=== PATIENT | female | born 1995 | race African-American/Black ===

== ENCOUNTER 2017-03-19 22:46 | Emergency (ER) | payer OTHER ==
[2017-03-19 23:03] VITALS: BP 130/69; PULSE 57; TEMP 97.9; BMI 32.4
== END 2017-03-20 02:21 | disposition left against medical advice (07) ==
LOC: JER 22:46
DX: Z53.21 Procedure and treatment not carried out due to patient leaving prior to being seen by health care provider (principal)
CPT/HCPCS: 99281-25

== ENCOUNTER 2017-07-07 18:21 | Emergency (ER) | payer OTHER ==
[2017-07-07 18:31] VITALS: BP 132/85; PULSE 77; TEMP 98; BMI 26.6
--- NOTE | 2017-07-07 18:32 | PDOC ---
Rapid Medical Evaluation Time Seen by Provider: 07/07/17 18:27 Medical Evaluation: Allergies Allergy/AdvReac Type Severity Reaction Status Date / Time No Known Allergies Allergy Verified 03/19/17 23:01 07/07/17 18:27 Pt presents with complaint of : boil to left under arm x 2 days and sore throat x 1 day. sister with MRSA On brief exam: non fluctulant, tender, semi firm 2cm mass to left lateral breast /lower axilla, no erythema to soft palte I have ordered the following: none Pt will go to the Emergency Dept for further workup: Discharge Disposition - Diagnosis Sore throat, Mass of left axilla - Referrals - Patient Instructions - Post Discharge Activity
--- NOTE | 2017-07-07 19:37 | PDOC ---
History of Present Illness - General Chief Complaint: Abscess Boil Stated Complaint: SORE THROAT/ABSCESS BOIL Time Seen by Provider: 07/07/17 18:27 History Source: Patient Exam Limitations: No Limitations - History of Present Illness Initial Comments: 07/07/17 19:34 Patient is a [22-year-old female, no significant medical history currently on no medication presents with sore throat since this a.m. and erythematous painful area to left lateral breast. History of abscess in the past from staph. Patient denies any fever, no dysphasia, no nausea vomiting or diarrhea.] Past Medical History: [Denies]. Allergies: No known allergies Medications: [None] Family History: Non-contributory Social History: Denies smoking, alcohol use, or IVDU Review of Systems GENERAL/CONSTITUTIONAL: [No fever or chills. No weakness. No weight change.] HEAD, EYES, EARS, NOSE AND THROAT: [No change in vision. No ear pain or discharge. Sore throat without dysphagia] CARDIOVASCULAR: [No chest pain or shortness of breath.] RESPIRATORY: [No cough, wheezing, or hemoptysis.] GASTROINTESTINAL: [No nausea, vomiting, diarrhea or constipation. No rectal bleeding.] GENITOURINARY: [No dysuria, frequency, or change in urination.] MUSCULOSKELETAL: [No joint or muscle swelling or pain. No neck or back pain.] SKIN AND BREASTS: [No rash or easy bruising. Erythematous, painful area to left lateral breast. No nipple discharge, no dimpling.] NEUROLOGIC: [No headache, vertigo, loss of consciousness, or loss of sensation.] PSYCHIATRIC: [No depression or anxiety.] ENDOCRINE: [No increased thirst. No abnormal weight change.] HEMATOLOGIC/LYMPHATIC: [No anemia, easy bleeding, or history of blood clots.] ALLERGIC/IMMUNOLOGIC: [No hives or skin allergy. No latex allergy.] Physical Exam: GENERAL: [The patient is awake, alert, and fully oriented, in no acute distress. ] EYES: [Pupils equal, round and reactive to light, extraocular movements intact, sclera anicteric, conjunctiva clear.] ENT: [Ears normal, nares patent, oropharynx clear without exudates. Moist mucous membranes. No uvula deviation] NECK: [Normal range of motion, supple without lymphadenopathy, JVD, or masses.] LUNGS: [Breath sounds equal, clear to auscultation bilaterally. No wheezes, and no crackles.] HEART: [Regular rate and rhythm, normal S1 and S2 without murmur, rub or gallop. ] ABDOMEN: [Soft, nontender, normoactive bowel sounds. No guarding, no rebound. No masses. No bruising or abrasions] BREAST: There Is no nipple discharge, no dimpling, no palpable lymph nodes, there is a erythematous palpable painful area to left lateral breast with no fluctuance. No evidence of cellulitis. Beginning stages of abscess, no open area. MUSCULOSKELETAL: [Normal range of motion, no edema. No clubbing or cyanosis. No cords, erythema, or tenderness. No CVA Tenderness with fist.] NEUROLOGICAL: [Cranial nerves II through XII grossly intact. Normal speech, normal gait.] SKIN: [Warm, Dry, normal turgor, no rashes or lesions noted. Erythematous painful area to left lateral breast with no defined middle, no fluctuance.] 07/07/17 19:39 Past History - Past Medical History Allergies/Adverse Reactions: Allergies Allergy/AdvReac Type Severity Reaction Status Date / Time No Known Allergies Allergy Verified 07/07/17 18:31 Home Medications: Ambulatory Orders Cephalexin [Keflex] 500 mg PO TID #30 capsule 07/07/17 Sulfamethoxazole/Trimethoprim [Bactrim Ds -] 1 tab PO BID #20 tablet 07/07/17 Asthma: No Cancer: No Cardiac Disorders: No COPD: No Diabetes: No GI Disorders: Yes (Gallstones) Disorders: No HTN: No Seizures: No Thyroid Disease: No - Surgical History Abdominal Surgery: Yes Cholecystectomy: Yes - Family Disease History Family Disease History: Diabetes: Mother - Immunization History Immunization Up to Date: Yes - Suicide/Smoking/Psychosocial Hx Smoking Status: No Smoking History: Never smoked Have you smoked in the past 12 months: No Number of Cigarettes Smoked Daily: 0 Hx Alcohol Use: No Drug/Substance Use Hx: No Substance Use Type: None Hx Substance Use Treatment: No *Physical Exam - Vital Signs Last Vital Signs Temp Pulse Resp BP Pulse Ox 98 F 77 18 132/85 100 07/07/17 18:28 07/07/17 18:28 07/07/17 18:28 07/07/17 18:28 07/07/17 18:28 Medical Decision Making - Medical Decision Making 07/07/17 19:36 A/P: Patient here for evaluation of beginning stages of abscess to left lateral breast with no defined area, no fluctuance, also with sore throat patient reports multiple areas to skin over the last several weeks which have healed on their own after warm compresses. She has history of staph. Multiple lesions recently which healed on their own. I will discharge patient home on Keflex and Bactrim, follow-up with PMD. There are no draining lesions that are able to be cultures at this time. Patient with no clinical signs of strep pharyngitis. No cough, no erythema or edema, no exudates. I discussed the physical exam findings, ancillary test results and final diagnoses with the patient. I answered all of the patient's questions. The patient was satisfied with the care received and felt comfortable with the discharge plan and treatment plan. The patient will call to arrange follow-up and will return to the Emergency Department with any new, persistent or worsening symptoms. 07/07/17 19:41 07/07/17 19:41 *DC/Admit/Observation/Transfer Diagnosis at time of Disposition: Sore throat, Mass of left axilla - Discharge Dispostion Disposition: HOME Condition at time of disposition: Good Admit: No - Prescriptions Prescriptions: Cephalexin [Keflex] 500 mg PO TID #30 capsule Sulfamethoxazole/Trimethoprim [Bactrim Ds -] 1 tab PO BID #20 tablet - Referrals Referrals: Jessie Metcalf [Primary Care Provider] - - Patient Instructions Printed Discharge Instructions: DI for Skin Abscess, Sore Throat Additional Instructions: Warm soaks to the painful area of left breast. 1. Increase fluid. 2. Pedialyte or Gatorade. 3. Please change toothbrush within 3 days after pain resolves 4. Warm saltwater gargles. 5. Please follow up with PMD in 3 days if symptoms not resolving. 6. Please return to the ER unable to drink or eat, increased fever or other concerns - Post Discharge Activity
== END 2017-07-07 19:47 | disposition home or self-care (01) ==
LOC: JERFT 18:21
DX: L02.412 Cutaneous abscess of left axilla (principal); R07.0 Pain in throat; Z87.19 Personal history of other diseases of the digestive system; B95.8 Unspecified staphylococcus as the cause of diseases classified elsewhere
CPT/HCPCS: 99281-25

== ENCOUNTER 2017-11-08 18:17 | Emergency (ER) | payer OTHER ==
[2017-11-08 18:53] VITALS: BP 115/68; PULSE 79; TEMP 98.7; BMI 26.6
--- NOTE | 2017-11-08 19:18 | PDOC ---
History of Present Illness - General Chief Complaint: Rash Stated Complaint: RASH Time Seen by Provider: 11/08/17 19:08 History Source: Patient Exam Limitations: No Limitations - History of Present Illness Initial Comments: 11/08/17 19:13 Mom here with complaints of re-exacerbation of eczema worsening on her right and left elbows. States he uses a Elocon cream which she has run out of and unavailable until next week denies fever, other symptoms. Timing/Duration: reports: just prior to arrival Severity: Yes: mild, moderate Location: reports: extremities (elbow creases) Modifying Factors: improves with: antihistamine, scratching Associated Symptoms: reports: denies symptoms Past History - Travel Traveled outside of the country in the last 30 days: No Close contact w/someone who was outside of country & ill: No - Past Medical History Allergies/Adverse Reactions: Allergies Allergy/AdvReac Type Severity Reaction Status Date / Time No Known Allergies Allergy Verified 11/08/17 18:50 Home Medications: Ambulatory Orders Mometasone Furoate [Elocon] 45 gm TP BID #1 oint...g. 11/08/17 Asthma: No Cancer: No Cardiac Disorders: No COPD: No Diabetes: No GI Disorders: Yes (Gallstones) Disorders: No HTN: No Seizures: No Thyroid Disease: No - Surgical History Abdominal Surgery: Yes Cholecystectomy: Yes - Family Disease History Family Disease History: Diabetes: Mother - Immunization History Immunization Up to Date: Yes - Suicide/Smoking/Psychosocial Hx Smoking Status: No Smoking History: Never smoked Have you smoked in the past 12 months: No Number of Cigarettes Smoked Daily: 0 Information on smoking cessation initiated: No Hx Alcohol Use: No Drug/Substance Use Hx: No Substance Use Type: None Hx Substance Use Treatment: No Review of Systems - Review of Systems Able to Perform ROS?: Yes Is the patient limited Kinyarwanda proficient: Yes Constitutional: Yes: Symptoms Reported, See HPI, Malaise. No: Fever HEENTM: Yes: See HPI. No: Symptoms Reported Integumentary: Yes: Symptoms Reported, See HPI *Physical Exam - Vital Signs Last Vital Signs Temp Pulse Resp BP Pulse Ox 98.7 F 79 20 115/68 99 11/08/17 18:51 11/08/17 18:51 11/08/17 18:51 11/08/17 18:51 11/08/17 18:51 - Physical Exam General Appearance: Yes: Nourished, Appropriately Dressed, Mild Distress. No: Apparent Distress HEENT: positive: JALIL, Normal ENT Inspection, TMs Normal, Pharynx Normal Neck: positive: Supple. negative: Tender, Lymphadenopathy (R), Lymphadenopathy (L) Respiratory/Chest: positive: Lungs Clear, Normal Breath Sounds Progress Note - Progress Note Progress Note: Eczema exacerbation, will treat with Elocon ointment and have patient follow-up with dermatology *DC/Admit/Observation/Transfer Diagnosis at time of Disposition: Eczema Qualifiers: Eczema type: other Qualified Code(s): L30.8 - Other specified dermatitis - Discharge Dispostion Disposition: HOME Condition at time of disposition: Stable Admit: No - Prescriptions Prescriptions: Mometasone Furoate [Elocon] 45 gm TP BID #1 oint...g. - Referrals - Patient Instructions Printed Discharge Instructions: DI for Atopic Dermatitis - Adult Additional Instructions: Rest, keep cool and dry- avoid strenuous activity or hot /humid environments Less hot showers, no abrasive soaps May use heavy creams like Eucerin or Cetaphil to keep skin moist Elocon cream 0.1%, apply twice a day to affected areas as needed May apply Aveeno, calamine lotion, [id number] hydrocortisone creams as needed for symptoms May use Benadryl at night for antihistamine, Zyrtec/ Laura or Claritin for daytime antihistamine use to help with itching May use [id number]-pru-[id number] hydrocortisone cream on all areas except face Try to identify cause for rash and avoid exposures Followup with PMD in one week if no resolution Make appointment with press operator carbon blocks for evaluation when possible - Post Discharge Activity Forms/Work/School Notes: Back to Work
== END 2017-11-08 19:36 | disposition home or self-care (01) ==
LOC: JERFT 18:17
DX: L30.8 Other specified dermatitis (principal)
CPT/HCPCS: 99281-25

== ENCOUNTER 2018-06-09 14:19 | Emergency (ER) | payer OTHER ==
[2018-06-09] MEDS ORDERED: IBUPROFEN 600 MG TABLET (FP) PO ONE ×2 (14:40→15:41)
--- NOTE | 2018-06-09 14:40 | PDOC ---
Rapid Medical Evaluation Time Seen by Provider: 06/09/18 14:36 Medical Evaluation: Allergies Allergy/AdvReac Type Severity Reaction Status Date / Time No Known Allergies Allergy Verified 03/29/18 09:06 06/09/18 14:37 I have performed a brief in-person evaluation of this patient. The patient presents with a chief complaint of: right ankle pain and mid back pain Pertinent physical exam findings: No tenderness to palpation or bones of foot and ankle. Ambulatory. No spinal tenderness palpated. Carrying child without difficulty. I have ordered the following: Osiris The patient will proceed to the ED for further evaluation. Discharge Disposition - Diagnosis Ankle pain, right, Back pain - Referrals - Patient Instructions - Post Discharge Activity
[2018-06-09 14:42] VITALS: BP 124/70; PULSE 77; TEMP 98.7; BMI 31.6
--- NOTE | 2018-06-09 15:44 | PDOC ---
History of Present Illness - General Chief Complaint: Pain, Acute Stated Complaint: RT FOOT PAIN Time Seen by Provider: 06/09/18 14:36 - History of Present Illness Initial Comments: 06/09/18 15:41 23-year-old female without comorbidities presents for evaluation of right foot pain and mid back pain times one day. No precipitating traumatic event. No radicular symptoms. No loss of bowel or bladder function. Past History - Past Medical History Allergies/Adverse Reactions: Allergies Allergy/AdvReac Type Severity Reaction Status Date / Time No Known Allergies Allergy Verified 06/09/18 15:33 Home Medications: Ambulatory Orders Cyclobenzaprine HCl [Flexeril 10 mg] 10 mg PO HS PRN #10 tablet 06/09/18 Ibuprofen [Motrin -] 600 mg PO TID #30 tablet 06/09/18 Asthma: No Cancer: No Cardiac Disorders: No COPD: No Diabetes: No GI Disorders: Yes (Gallstones) Disorders: No HTN: No Seizures: No Thyroid Disease: No - Surgical History Abdominal Surgery: Yes Cholecystectomy: Yes - Family Disease History Family Disease History: Diabetes: Mother - Immunization History Immunization Up to Date: Yes - Suicide/Smoking/Psychosocial Hx Smoking Status: No Smoking History: Never smoked Have you smoked in the past 12 months: No Number of Cigarettes Smoked Daily: 0 Information on smoking cessation initiated: No Hx Alcohol Use: No Drug/Substance Use Hx: No Substance Use Type: None Hx Substance Use Treatment: No Review of Systems - Review of Systems Musculoskeletal: Yes: See HPI, Back Pain, Joint Pain All Other Systems: Reviewed and Negative *Physical Exam - Vital Signs Last Vital Signs Temp Pulse Resp BP Pulse Ox 98.7 F 77 18 124/70 99 06/09/18 14:39 06/09/18 14:39 06/09/18 14:39 06/09/18 14:39 06/09/18 14:39 - Physical Exam Comments: 06/09/18 15:41 Thoracolumbar spine range of motion is full there is mild right-sided thoracolumbar musculature spasm and tenderness. 5 out of 5 strength in bilateral lower extremities without gross sensorimotor deficits in the negative straight leg raise test bilaterally. Right foot and ankle range of motion is full and nonpainful there is mild tenderness about the MTPJ's of the foot without any evidence of instability or gross sensorimotor deficits she's neurovascularly intact Medical Decision Making - Medical Decision Making 06/09/18 15:42 Thoracolumbar muscle spasm and strain and right foot metatarsalgia I will treat her with a course of Motrin and Flexeril and have her follow-up with orthopedics for further evaluation and treatment options *DC/Admit/Observation/Transfer Diagnosis at time of Disposition: Ankle pain, right, Back pain - Discharge Dispostion Disposition: HOME Condition at time of disposition: Stable Decision to Admit order: No - Prescriptions Prescriptions: Cyclobenzaprine HCl [Flexeril 10 mg] 10 mg PO HS PRN #10 tablet PRN Reason: Muscle Spasms Ibuprofen [Motrin -] 600 mg PO TID #30 tablet - Referrals Referrals: Ricardo Lundy MD [Staff Physician] - - Patient Instructions Printed Discharge Instructions: Muscle Strain Additional Instructions: Return to the emergency room if symptoms worsen or go unresolved. The muscle relaxers one tablet before bedtime which will make you sleepy. The anti- inflammatories one tablet 3 times a day. Please take that with food and discontinue the medication of advised stomach. Follow-up with orthopedic surgery in 2-3 days for further evaluation and treatment options. - Post Discharge Activity
== END 2018-06-09 16:27 | disposition home or self-care (01) ==
LOC: JERFT 14:19
DX: M25.571 Pain in right ankle and joints of right foot (principal); M54.6 Pain in thoracic spine
CPT/HCPCS: 99281-25

== ENCOUNTER 2018-06-11 13:07 | Emergency (ER) | payer OTHER ==
[2018-06-11 13:11] VITALS: BMI 30.9
--- NOTE | 2018-06-11 13:58 | PDOC ---
History of Present Illness - General Chief Complaint: Pain Stated Complaint: RT SIDE PAIN Time Seen by Provider: 06/11/18 13:23 History Source: Patient - History of Present Illness Timing/Duration: reports: constant Quality: reports: severe Abdominal Pain Onset Location: reports: RLQ Pain Radiation: reports: no radiation Past History - Past Medical History Allergies/Adverse Reactions: Allergies Allergy/AdvReac Type Severity Reaction Status Date / Time No Known Allergies Allergy Verified 06/11/18 13:10 Home Medications: Ambulatory Orders NK [No Known Home Medication] 06/11/18 Asthma: No Cancer: No Cardiac Disorders: No COPD: No Diabetes: No GI Disorders: Yes (Gallstones) Disorders: No HTN: No Seizures: No Thyroid Disease: No - Surgical History Abdominal Surgery: Yes Cholecystectomy: Yes - Family Disease History Family Disease History: Diabetes: Mother - Immunization History Immunization Up to Date: Yes - Suicide/Smoking/Psychosocial Hx Smoking Status: No Smoking History: Never smoked Have you smoked in the past 12 months: No Number of Cigarettes Smoked Daily: 0 Hx Alcohol Use: No Drug/Substance Use Hx: No Substance Use Type: None Hx Substance Use Treatment: No Abd/GI Specific PMHX - Complaint Specific PMHX Gall Bladder Disease: Yes Review of Systems - Review of Systems Constitutional: No: Chills, Fever ABD/GI: No: Blood Streaked Bowels, Constipated, Diarrhea, Nausea, Rectal Bleeding, Vomiting : No: Burning, Dysuria, Discharge, Flank Pain, Hematuria Musculoskeletal: No: Back Pain *Physical Exam - Vital Signs Last Vital Signs Temp Pulse Resp BP Pulse Ox 98.5 F 66 18 120/75 100 06/11/18 13:09 06/11/18 13:09 06/11/18 13:09 06/11/18 13:09 06/11/18 13:09 - Physical Exam General Appearance: Yes: Appropriately Dressed. No: Apparent Distress HEENT: positive: Normal Voice Neck: positive: Supple Respiratory/Chest: negative: Respiratory Distress Female Pelvic Exam: positive: normal external exam, cervical os closed, normal adnexa. negative: CMT, discharge, lesions, adnexal tenderness, vaginal bleeding Gastrointestinal/Abdominal: positive: Normal Bowel Sounds, Tender (+tto to RLQ and R suprabubic area), Soft. negative: Distended, Guarding, Rebound Musculoskeletal: negative: CVA Tenderness Integumentary: positive: Dry, Warm Neurologic: positive: Fully Oriented, Alert, Normal Mood/Affect ED Treatment Course - LABORATORY CBC & Chemistry Diagram: 06/11/18 14:02 06/11/18 14:02 Medical Decision Making - Medical Decision Making 06/11/18 13:56 23 yo F, s/p alexx remotely, here with severe RLQ pain that started last night, sharp, 7 out of 10 and constant. States she had to leave work today secondary to pain. No dysuria, abnormal discharge, nausea, vomiting, fever, chills or changes to bowel movements. No history of similar episode. No known history of ovarian cysts or fibroids. Not due for menses. See exam R pelvic pain R/o appy vs torsion vs UTI vs renal colic, less likely PID -pain control -labs/ua -CT -?US 06/11/18 14:41 06/11/18 16:53 Mild transaminitis on labs, similar to labs in the past. Patient denies known liver disease and no excessive alcohol intake. CT read as no obvious sign of appy, but there is a 7 x 4 cm right ovarian cyst with possible fallopian tube dilation. Will order US stat r/o torsion *DC/Admit/Observation/Transfer - Referrals Referrals: Jessie Metcalf [Primary Care Provider] - - Patient Instructions - Post Discharge Activity
[2018-06-11 14:19] LABS: BASO % 0.8 % (0-2.0); EOS % 0.6 % (0-4.5); HEMATOCRIT 38.8 % (32.4-45.2); MCH 30.6 pg (25.7-33.7); MCHC 33.5 g/dl (32.0-36.0); MEAN CELL VOLUME 91.3 fl (80-96); MEAN PLT VOLUME 8.3 fl (7.5-11.1); MONO % 6.9 % (3.8-10.2); NEUT % 70.7 % (42.8-82.8); PLATELET COUNT 361 K/MM3 (134-434); RBC 4.24 M/mm3 (3.60-5.2); RDW 13.5 % (11.6-15.6)
[2018-06-11 14:21] LABS: URINE APPEARANCE CLEAR; URINE BILIRUBIN NEGATIVE (<2.0 mg/dL); URINE COLOR YELLOW; URINE GLUCOSE (UA) NEGATIVE (NEGATIVE); URINE KETONE NEGATIVE (NEGATIVE); URINE LEUK ESTERASE TRACE (NEGATIVE); URINE NITRITE NEGATIVE (NEGATIVE); URINE PROTEIN NEGATIVE (NEGATIVE); URINE UROBILINOGEN 4.0 E.U/dl mg/dL (0.2-1.0)
[2018-06-11 14:37] LABS: EPI CELLS RARE /HPF (FEW); URINE MUCUS RARE
[2018-06-11] MEDS ORDERED: KETOROLAC TROMETHAMINE 30 MG/1 ML VIAL IVPUSH ONE (14:41)
[2018-06-11 15:15] LABS: ALBUMIN 4.2 g/dl (3.4-5.0); ALK PHOS 261 U/L (45-117); ANION GAP 5 MMOL/L (8-16); BILIRUBIN,TOTAL 0.4 mg/dL (0.2-1); BLOOD UREA NITROGEN 8 mg/dL (7-18); CALCIUM 9.3 mg/dL (8.5-10.1); CHLORIDE 103 mmol/L (98-107); CO2 28 mmol/L (21-32); CREATININE 0.8 mg/dL (0.55-1.3); GLUCOSE,RANDOM 86 mg/dL (74-106); LIPASE 226 U/L (73-393); POTASSIUM 4.2 mmol/L (3.5-5.1); SGOT/AST 66 U/L (15-37); SGPT/ALT 98 U/L (13-61); SODIUM 136 mmol/L (136-145); TOT PROT 8.2 g/dl (6.4-8.2)
[2018-06-11] MEDS ORDERED: KETOROLAC TROMETHAMINE 30 MG/1 ML VIAL ONE (15:19)
--- NOTE | 2018-06-11 17:44 | PDOC ---
*Physical Exam - Vital Signs Last Vital Signs Temp Pulse Resp BP Pulse Ox 98.5 F 66 18 120/75 100 06/11/18 13:09 06/11/18 13:09 06/11/18 13:09 06/11/18 13:09 06/11/18 13:09 - Physical Exam Comments: 06/11/18 20:22 Gen: aaox3, nad heart: +s1s2 reg lungs: cta b/l abd: soft, nt/nd +bs, no pelvic ttp ext: no c/c/e ED Treatment Course - LABORATORY CBC & Chemistry Diagram: 06/11/18 14:02 06/11/18 14:02 - ADDITIONAL ORDERS Additional order review: Laboratory Results 06/11/18 06/11/18 06/11/18 14:02 14:02 14:02 Sodium 136 Potassium 4.2 Chloride 103 Carbon Dioxide 28 Anion Gap 5 L BUN 8 Creatinine 0.8 Creat Clearance w eGFR > 60 Random Glucose 86 Calcium 9.3 Total Bilirubin 0.4 AST 66 H ALT 98 H Alkaline Phosphatase 261 H Total Protein 8.2 Albumin 4.2 Lipase 226 Serum , Qual Negative Urine Color Yellow Urine Appearance Clear Urine pH 7.0 D Ur Specific [place] 1.021 Urine Protein Negative Urine Glucose (UA) Negative Urine Ketones Negative Urine Blood Negative Urine Nitrite Negative Urine Bilirubin Negative Urine Urobilinogen 4.0 e.u/dl H Ur Leukocyte Esterase Trace Urine WBC (Auto) 3 Urine RBC (Auto) 1 Ur Epithelial Cells Rare Urine Mucus Rare 06/11/18 14:02 RBC 4.24 MCV 91.3 MCHC 33.5 RDW 13.5 MPV 8.3 Neutrophils % 70.7 D Lymphocytes % 21.0 D Monocytes % 6.9 Eosinophils % 0.6 D Basophils % 0.8 D - Medications Given in the ED: ED Medications Discontinued Medications Generic Name Dose Route Start Last Admin Trade Name Freq PRN Reason Stop Dose Admin Ketorolac Tromethamine 30 mg 06/11/18 14:41 06/11/18 15:22 Toradol Injection - IVPUSH 06/11/18 14:42 30 mg ONCE ONE Administration Medical Decision Making - Medical Decision Making 06/11/18 20:15 23yo female signed out pending pelvic ultrasound -pt with RLQ pain today -ct showed large right ovarian cyst pelvic ultrasound shows [id number] R ovarian cyst and fallopian tube dilatation -pt denies pain on re-evla abd: soft, no ttp 06/11/18 20:[address] Washington who recommends follow up Thursday in the office at 9am. Recommends pt is NPO. this was discussed iwth the patient labs and imaging were discussed with the patient pt understand that if she develops any abd pain over the weekend to immediately return to the ED discussed all signs and symptoms of ovarian torsion and her risk of torsion discussed that she need to see REFRACTORY TECHNICIAN on Thursday at 9am discussed that she needs to be NPO after midnight on Thursday abd is soft and nontender pt is stable for d/c to home *DC/Admit/Observation/Transfer Diagnosis at time of Disposition: Right ovarian cyst - Discharge Dispostion Disposition: HOME Condition at time of disposition: Stable Decision to Admit order: No - Referrals Referrals: Jessie Metcalf [Primary Care Provider] - Mary Beth Washington DO [Staff Physician] - - Patient Instructions Printed Discharge Instructions: DI for Ovarian Cyst Additional Instructions: Please do not eat or drink after midnight on thursday. Please go to see Dr. Washington at 9am on Thursday. Please return to the ED immediately if you develop any new or worsening abdominal pain. Please do not lift anything heavy. Please do not have intercourse. No exercise. - Post Discharge Activity - Attestations Physician Attestion: 06/11/18 20:22 I, Dr. Amie Tinsley DO, attest that this document has been prepared under my direction and personally reviewed by me in its entirety. I further attest, that it accurately reflects all work, treatment, procedures and medical decision -making performed by me.
[2018-06-11 19:00] VITALS: PULSE 70; TEMP 98.4
[2018-06-11 19:04] LABS: INR 1.05 (0.83-1.09); PROTHROMBIN TIME (PATIENT) 12.4 SEC (9.7-13.0)
[2018-06-11 22:25] VITALS: BP 126/73
== END 2018-06-11 20:34 | disposition home or self-care (01) ==
LOC: JER 13:07
PROC: 3E0333Z Introduction of Anti-inflammatory into Peripheral Vein, Percutaneous Approach (ICD-10-PCS; principal; 2018-06-11)
DX: N83.201 Unspecified ovarian cyst, right side (principal)
CPT/HCPCS: 36415; 74177-TC; 76830-TC; 80053; 81003; 81015; 83690; 84703; 85025; 85610; 86850; 86900; 86901; 87491; 87591; 96374; 99283-25

== ENCOUNTER 2018-06-29 16:54 | Emergency (ER) | payer OTHER ==
--- NOTE | 2018-06-29 17:15 | PDOC ---
Rapid Medical Evaluation Time Seen by Provider: 06/29/18 17:13 Medical Evaluation: Allergies Allergy/AdvReac Type Severity Reaction Status Date / Time No Known Allergies Allergy Verified 06/11/18 13:10 I have performed a brief in-person evaluation of this patient. The patient presents with a chief complaint of: sinus pressure, abd pain and vomiting Pertinent physical exam findings: none I have ordered the following: UA/hcg, labs The patient will proceed to the ED for further evaluation. Discharge Disposition - Diagnosis Sinus pressure, Nausea and vomiting, Abdominal pain - Referrals Referrals: Jessie Metcalf [Primary Care Provider] - - Patient Instructions - Post Discharge Activity
[2018-06-29 17:16] VITALS: BP 121/78; PULSE 64; TEMP 98.6; BMI 31.4
[2018-06-29 17:31] LABS: BASO % 0.5 % (0-2.0); EOS % 0.2 % (0-4.5); HEMATOCRIT 33.6 % (32.4-45.2); HEMOGLOBIN 11.1 GM/dL (10.7-15.3); MCH 30.2 pg (25.7-33.7); MEAN CELL VOLUME 91.4 fl (80-96); MEAN PLT VOLUME 7.9 fl (7.5-11.1); NEUT % 86.3 % (42.8-82.8); PLATELET COUNT 317 K/MM3 (134-434); RBC 3.67 M/mm3 (3.60-5.2); RDW 13.4 % (11.6-15.6); WHITE BLOOD COUNT 9.1 K/mm3 (4.0-10.0)
[2018-06-29 18:05] LABS: ALBUMIN 3.9 g/dl (3.4-5.0); ALK PHOS 228 U/L (45-117); ANION GAP 6 MMOL/L (8-16); BILIRUBIN,TOTAL 0.3 mg/dL (0.2-1); BLOOD UREA NITROGEN 7 mg/dL (7-18); CALCIUM 8.7 mg/dL (8.5-10.1); CHLORIDE 104 mmol/L (98-107); CO2 27 mmol/L (21-32); CREATININE 0.7 mg/dL (0.55-1.3); GLUCOSE,RANDOM 96 mg/dL (74-106); POTASSIUM 3.6 mmol/L (3.5-5.1); SGOT/AST 33 U/L (15-37); SGPT/ALT 84 U/L (13-61); SODIUM 137 mmol/L (136-145); TOT PROT 7.2 g/dl (6.4-8.2)
[2018-06-29 18:06] LABS: LIPASE 178 U/L (73-393)
--- NOTE | 2018-06-29 18:53 | PDOC ---
History of Present Illness - General History Source: Patient Exam Limitations: No Limitations - History of Present Illness Initial Comments: 06/29/18 19:03 The patient is a 23 year old female, with no significant PMH who presents to the emergency department with a diffuse headache, abdominal pain, nausea and multiple episodes of NBNB vomit earlier today. Patient reports the symptoms have resolved with the exception of still having a mild diffuse headache and some nausea. Patient last took motrin at 11AM today. 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 <Sofya Zuniga - Last Filed: 06/29/18 19:03> <Astrid Dempsey - Last Filed: 06/29/18 20:02> - General Chief Complaint: Nausea/Vomiting Stated Complaint: Nausea/Vomiting Time Seen by Provider: 06/29/18 17:13 Past History <Sofya Zuniga - Last Filed: 06/29/18 19:03> - Past Medical History Asthma: No Cancer: No Cardiac Disorders: No COPD: No Diabetes: No GI Disorders: Yes (Gallstones) Disorders: No HTN: No Seizures: No Thyroid Disease: No - Surgical History Abdominal Surgery: Yes Cholecystectomy: Yes - Family Disease History Family Disease History: Diabetes: Mother - Immunization History Immunization Up to Date: Yes - Suicide/Smoking/Psychosocial Hx Smoking Status: No Smoking History: Never smoked Have you smoked in the past 12 months: No Number of Cigarettes Smoked Daily: 0 Information on smoking cessation initiated: No Hx Alcohol Use: No Drug/Substance Use Hx: No Substance Use Type: None Hx Substance Use Treatment: No <Astrid Dempsey - Last Filed: 06/29/18 20:02> - Past Medical History Allergies/Adverse Reactions: Allergies Allergy/AdvReac Type Severity Reaction Status Date / Time No Known Allergies Allergy Verified 06/29/18 17:13 Home Medications: Ambulatory Orders Ibuprofen 800 mg PO TID #30 tablet 06/29/18 Ondansetron [Zofran Odt -] 4 mg SL TID #10 od.tablet 06/29/18 Review of Systems - Review of Systems Able to Perform ROS?: Yes Comments:: 06/29/18 19:01 ADULT ROS GENERAL/CONSTITUTIONAL: (+) chills. No fever. No weakness. HEAD, EYES, EARS, NOSE AND THROAT: No change in vision. No ear pain or discharge. No sore throat. CARDIOVASCULAR: No chest pain or shortness of breath. RESPIRATORY: No cough, wheezing, or hemoptysis. GASTROINTESTINAL: (+) Abdominal pain. (+) Nausea. (+) Vomiting. No diarrhea or constipation. GENITOURINARY: No dysuria, frequency, or change in urination. MUSCULOSKELETAL: No joint or muscle swelling or pain. No neck or back pain. SKIN: No rash NEUROLOGIC: (+) Headache. No vertigo, loss of consciousness, or change in strength/sensation. ENDOCRINE: No increased thirst. No abnormal weight change. HEMATOLOGIC/LYMPHATIC: No anemia, easy bleeding, or history of blood clots. ALLERGIC/IMMUNOLOGIC: No hives or skin allergy. <Sofya Zuniga - Last Filed: 06/29/18 19:03> *Physical Exam - Vital Signs Last Vital Signs Temp Pulse Resp BP Pulse Ox 98.6 F 64 16 121/78 98 06/29/18 17:14 06/29/18 17:14 06/29/18 17:14 06/29/18 17:14 06/29/18 17:14 - Physical Exam Comments: 06/29/18 19:02 GENERAL: Awake, alert, and fully oriented, in no acute distress HEAD: No signs of trauma EYES: PERRLA, EOMI, sclera anicteric, conjunctiva clear ENT: Auricles normal inspection, hearing grossly normal, nares patent, oropharynx clear without exudates. Moist mucosa NECK: Normal ROM, supple, no lymphadenopathy, JVD, or masses LUNGS: Breath sounds equal, clear to auscultation bilaterally. No wheezes, and no crackles HEART: Regular rate and rhythm, normal S1 and S2, no murmurs, rubs or gallops ABDOMEN: Soft, nontender, normoactive bowel sounds. No guarding, no rebound. No masses EXTREMITIES: Normal range of motion, no edema. No clubbing or cyanosis. No cords, erythema, or tenderness NEUROLOGICAL: Cranial nerves II through XII grossly intact. Normal speech, normal gait SKIN: Warm, Dry, normal turgor, no rashes or lesions noted. <Sofya Zuniga - Last Filed: 06/29/18 19:03> - Vital Signs Last Vital Signs Temp Pulse Resp BP Pulse Ox 98.6 F 64 16 121/78 98 11/13/18 17:14 06/29/18 17:14 06/29/18 17:14 06/29/18 17:14 06/29/18 17:14 <Astrid Dempsey - Last Filed: 06/29/18 20:02> ED Treatment Course - LABORATORY CBC & Chemistry Diagram: 06/29/18 17:23 06/29/18 17:23 - ADDITIONAL ORDERS Additional order review: Laboratory Results 06/29/18 17:23 Sodium 137 Potassium 3.6 Chloride 104 Carbon Dioxide 27 Anion Gap 6 L BUN 7 Creatinine 0.7 Creat Clearance w eGFR > 60 Random Glucose 96 Calcium 8.7 Total Bilirubin 0.3 AST 33 ALT 84 H Alkaline Phosphatase 228 H Total Protein 7.2 Albumin 3.9 Lipase 178 06/29/18 17:23 RBC 3.67 MCV 91.4 MCHC 33.0 RDW 13.4 MPV 7.9 Neutrophils % 86.3 H D Lymphocytes % 10.0 D Monocytes % 3.0 L Eosinophils % 0.2 Basophils % 0.5 <Sofya Zuniga - Last Filed: 06/29/18 19:03> - LABORATORY CBC & Chemistry Diagram: 06/29/18 17:23 06/29/18 17:23 - ADDITIONAL ORDERS Additional order review: Laboratory Results 06/29/18 17:23 Sodium 137 Potassium 3.6 Chloride 104 Carbon Dioxide 27 Anion Gap 6 L BUN 7 Creatinine 0.7 Creat Clearance w eGFR > 60 Random Glucose 96 Calcium 8.7 Total Bilirubin 0.3 AST 33 ALT 84 H Alkaline Phosphatase 228 H Total Protein 7.2 Albumin 3.9 Lipase 178 06/29/18 17:23 RBC 3.67 MCV 91.4 MCHC 33.0 RDW 13.4 MPV 7.9 Neutrophils % 86.3 H D Lymphocytes % 10.0 D Monocytes % 3.0 L Eosinophils % 0.2 Basophils % 0.5 <Astrid Dempsey - Last Filed: 06/29/18 20:02> *DC/Admit/Observation/Transfer - Attestations Scribe Attestion: 06/29/18 19:02 Documentation prepared by Sofya Zuniga, acting as medical service representative for Moo Byers MD. <Sofya Zuniga - Last Filed: 06/29/18 19:03> - Discharge Dispostion Decision to Admit order: No <Astrid Dempsey - Last Filed: 06/29/18 20:02> Diagnosis at time of Disposition: Headache Qualifiers: Headache type: unspecified Headache chronicity pattern: acute headache Intractability: not intractable Qualified Code(s): R51 - Headache - Discharge Dispostion Disposition: HOME Condition at time of disposition: Stable - Referrals Referrals: Jessie Metcalf [Primary Care Provider] - - Patient Instructions Printed Discharge Instructions: DI for Migraine Additional Instructions: Your headache and vomiting or most likely due from a migraine today. Your strep test is negative. Please take the Motrin 800 mg every 8 hours for the next day to help the symptoms from returning. He may take Zofran every 8 hours as needed for nausea. Please drink plenty of fluids and get rest. Follow-up with her primary care doctor this week. Return to the emergency department for worsening headache, visual changes, lightheadedness, vomiting or if you have any changes in your symptoms. - Post Discharge Activity Forms/Work/School Notes: Back to Work
[2018-06-29] MEDS ORDERED: IBUPROFEN 400 MG TABLET (FP) PO ONE (19:01)
[2018-06-29] MEDS ORDERED: ONDANSETRON *ODT* 4 MG TABLET SL ONE (19:01)
[2018-06-29 19:09] LABS: HCG,QUALITATIVE URINE Negative
[2018-06-29 21:41] LABS: URINE APPEARANCE CLEAR; URINE BILIRUBIN NEGATIVE (<2.0 mg/dL); URINE COLOR YELLOW; URINE GLUCOSE (UA) NEGATIVE (NEGATIVE); URINE KETONE 1+ (NEGATIVE); URINE LEUK ESTERASE NEGATIVE (NEGATIVE); URINE NITRITE NEGATIVE (NEGATIVE); URINE PROTEIN 1+ (NEGATIVE)
[2018-06-29 21:49] LABS: EPI CELLS RARE /HPF (FEW); URINE BACTERIA RARE /hpf (NONE SEEN); URINE MUCUS MANY
== END 2018-06-29 20:14 | disposition home or self-care (01) ==
LOC: JERFT 16:54
DX: R51 Headache (principal)
CPT/HCPCS: 36415; 80053; 81003; 81015; 83690; 84703; 85025; 87070; 87430; 99281-25; Q0162

== ENCOUNTER 2018-07-26 05:44 | Day surgery (SDC) | payer OTHER ==
[2018-07-23 16:52] VITALS: BMI 30.7
[2018-07-26] MEDS ORDERED: fentaNYL CITRATE 250 MCG/5 ML VIAL ONE (13:54)
[2018-07-26] MEDS ORDERED: MIDAZOLAM HCL 2 MG/2 ML SINGLE DOSE VIAL ONE (13:55)
[2018-07-26] MEDS ORDERED: ROCURONIUM BROMIDE 50 MG/5 ML VIAL ONE (13:55)
[2018-07-26] MEDS ORDERED: PROPOFOL 20 ML ONE ×2 (13:55→14:19)
[2018-07-26] MEDS ORDERED: DEXAMETHASONE SOD PHOSPHATE 4 MG/1 ML VIAL ONE (13:56)
[2018-07-26] MEDS ORDERED: LIDOCAINE HCL/PF 2% SDV 5ML VIAL ONE (13:56)
[2018-07-26] MEDS ORDERED: ACETAMINOPHEN 325 MG TABLET (FP) PO PRN (14:01)
[2018-07-26] MEDS ORDERED: IBUPROFEN 800 MG/8 ML IJ IVPB PRN (14:01)
--- NOTE | 2018-07-26 14:01 | HP ---
History & Physical Update - History History: No Change - Physical Physical: No Change - Assessment Assessment: No Change - Plan Plan: No Change (Agree with H&P from 07/23/18)
[2018-07-26] MEDS ORDERED: oxyCODONE HCL 5 MG TABLET PO PRN (14:14)
[2018-07-26] MEDS ORDERED: PROMETHAZINE HCL 25 MG/1 ML VIAL IVPUSH PRN (14:14)
[2018-07-26] MEDS ORDERED: ONDANSETRON 4 MG/2 ML VIAL IVPUSH PRN (14:14)
[2018-07-26] MEDS ORDERED: LACTATED RINGERS SOLUTION 1,000 ML IV SCH ×2 (14:15)
[2018-07-26] MEDS ORDERED: BUPIVACAINE HCL/PF (5 MG/ML) 30 ML VIAL IJ ONE (14:45)
[2018-07-26] MEDS ORDERED: BUPIVACAINE HCL/PF 0.5% (5MG/ML) 10 ML VIAL ONE (14:46)
[2018-07-26] MEDS ORDERED: NEOSTIGMINE METHYLSULFATE 0.5 MG/ML - 10 ML MDV ONE (14:50)
[2018-07-26] MEDS ORDERED: GLYCOPYRROLATE 0.2 MG/1 ML VIAL ONE (14:50)
--- NOTE | 2018-07-26 15:20 | OP ---
Operative Note - Note: Operative Date: 07/26/18 Pre-Operative Diagnosis: Right dilated fallopian tube Operation: Laprascopic right salpingectomy Post-Operative Diagnosis: Same as Pre-op Surgeon: Mary Beth Washington Lime Sludge Mixer: Kemal Kirkland Anesthesiologist/DATA REPORTING ANALYST: Reinier Suggs Anesthesia: General Specimens Removed: right fallopian tube Estimated Blood Loss (mls): 2 Fluid Volume Replaced (mls): 200 Operative Report Dictated: Yes
--- NOTE | 2018-07-26 15:21 | SURG ---
Surgery Offset Second Press Operator Note Offset Second Press Operator: Kemal Kirkland PA-C Date of Service: 07/26/18 Diagnosis: Right dilated fallopian tube, pelvic pain Procedure: Laprascopic right salpingectomy I was present for the entirety of the operative procedure. For further detail, please refer to operative report. Visit type - Case Type Case Type: Scheduled - New patient This patient is new to me today: Yes Date on this admission: 07/26/18
[2018-07-26] MEDS ORDERED: IBUPROFEN 800 MG/8 ML IJ IVPB ONE (15:38)
[2018-07-26 17:59] VITALS: BP 102/57; PULSE 66
[2018-07-26 18:07] VITALS: TEMP 97.8
--- NOTE | 2018-07-27 09:22 | OP ---
DATE OF OPERATION: 07/26/2018 PREOPERATIVE DIAGNOSIS: Right adnexal cyst, possible dilated fallopian tube. POSTOPERATIVE DIAGNOSIS: Right hematosalpinx. SURGEON: Radha Washington DO CANVAS GOODS MAKER: MARIAJOSE Dee PROCEDURE: Laparoscopic right salpingectomy. ANESTHESIOLOGIST: SHA Albrecht-PASTORA, applying general anesthesia. COMPLICATIONS: None. ESTIMATED BLOOD LOSS: 5 mL SPECIMEN: Right fallopian tube to permanent evaluation. COUNT: Sponge, needle, and instrument count correct. DISPOSITION: Stable to PACU. BRIEF HISTORY AND PROCEDURE: Patient is a 23-year-old female who had been seen in the emergency department with complaints of pelvic pain, and upon ultrasound examination, was found to have possible dilated fallopian tube versus ovarian torsion. Patient was then seen in the office with followup and scheduled to undergo diagnostic laparoscopy and removal of cystic structure. Patient was admitted to [facility] on July 26, 2018. Consents for the procedure were confirmed which were signed in the office 3 days prior. She was then taken back to the operating room and given general anesthesia by Reinier Suggs CRNA, and placed in dorsal lithotomy position, prepped and draped in the usual sterile fashion. A Jennings catheter was placed under sterile conditions, and a hard timeout was performed. A 5-mm skin incision was created in the umbilicus through which a Veress needle was inserted and the abdomen insufflated with CO2 gas. A 5-mm trocar was placed in the umbilical incision. A camera was inserted into the abdomen. Inspection revealed a dilated right fallopian tube which appeared to be full of blood. Left fallopian tube and bilateral ovaries were noted to be normal. The right fallopian tube was elevated and dissected off the attachment to the ovary and to the uterus along the mesosalpinx using LigaSure device. The tube was then incised and drained of the blood and fluid so it could fit through the 5-mm trocar. It was removed through the left 5-mm trocar site under direct visualization without difficulty. The specimen was sent to Pathology for permanent evaluation. Surgical site was noted to be hemostatic. The remainder of the intraabdominal contents revealed no abnormalities. The trocars were removed under direct visualization. Abdomen was desufflated. The skin was reapproximated using 4-0 Biosyn and skin glue. Marcaine was injected subcutaneously. The Jennings catheter was removed. She was awoken from anesthesia and recovering in stable condition after the procedure. Sponge, needle, and instrument count was reported to be correct. RADHA WASHINGTON DO /[id number]
--- NOTE | 2018-07-28 12:15 | PATH ---
Surgical Pathology Report Patient Name: CARLOS ALBERTO HOLMAN [facility]. Rec. #: [id number] /Age/Gender: 1995 (Age: 23) / F Account: [id number] Location: AMBULATORY SURG Taken: 07/26/2018 Received: 07/27/2018 Reported: 07/28/2018 Physicians: Mary Beth Washington M.D. Specimen(s) Received RIGHT FALLOPIAN TUBE Clinical History Adrenal mass, hydrosalpinx Final Diagnosis FALLOPIAN TUBE, RIGHT, LAPAROSCOPIC SALPINGECTOMY: FALLOPIAN TUBE WITH ENDOMETRIOSIS, ADHESIONS, AND CHRONIC SALPINGITIS. Electronically Signed Jessie Santos M.D. Gross Description Received in formalin labeled "right fallopian tube," is a 7 cm in length fimbriated fallopian tube. The outer surface is ssoa-chau with adhesions. Sectioning reveals a focally cystic appearing lumen. Mobile Paramedical Examiner sections are submitted in 2 cassettes as follows: 1-fimbria; 2-cross sections of fallopian tube. 07/27/2018 [facility]07/27/2018
== END 2018-07-26 18:08 | disposition home or self-care (01) ==
LOC: JASUSAT 05:44
PROVIDERS: ATTEND Obstetrics & Gynecology
PROC: 0UB54ZZ Excision of Right Fallopian Tube, Percutaneous Endoscopic Approach (ICD-10-PCS; principal; 2018-07-26 14:00)
DX: N83.6 Hematosalpinx (principal)
CPT/HCPCS: 88305-TC; 94760

== ENCOUNTER 2018-09-20 16:59 | Emergency (ER) | payer OTHER | END 2018-09-20 19:01 | disposition home or self-care (01) | LOC: JERFT 16:59 ==

== ENCOUNTER 2018-10-09 23:20 | Emergency (ER) | payer OTHER ==
--- NOTE | 2018-10-10 00:27 | PDOC ---
History of Present Illness - History of Present Illness Initial Comments: This patient is a 23 year old female, with no significant PMHx, who presents with lower back pain and epigastric. Her daughter was diagnosed with the flu recently but patient is not currently complaining of any flu-like symptoms. 10/10/18 01:21 <Alyse Ceballos - Last Filed: 10/10/18 01:20> <Angy Sawyer - Last Filed: 10/10/18 02:34> - General Stated Complaint: BACK AND ABD PAIN Time Seen by Provider: 10/10/18 00:27 Past History <Alyse Ceballos - Last Filed: 10/10/18 01:20> - Past Medical History Asthma: No Cancer: No Cardiac Disorders: No COPD: No Diabetes: No GI Disorders: Yes (Gallstones) Disorders: No HTN: Yes (2011- during ) Seizures: No Thyroid Disease: No - Surgical History Abdominal Surgery: Yes Cholecystectomy: Yes - Family Disease History Family Disease History: Diabetes: Mother - Immunization History Immunization Up to Date: Yes - Suicide/Smoking/Psychosocial Hx Smoking Status: No Smoking History: Never smoked Have you smoked in the past 12 months: No Number of Cigarettes Smoked Daily: 0 Hx Alcohol Use: No Drug/Substance Use Hx: No Substance Use Type: None Hx Substance Use Treatment: No <Angy Sawyer - Last Filed: 10/10/18 02:34> - Past Medical History Allergies/Adverse Reactions: Allergies Allergy/AdvReac Type Severity Reaction Status Date / Time No Known Allergies Allergy Verified 09/20/18 17:11 Home Medications: Ambulatory Orders Ibuprofen 400 mg PO Q6H PRN #30 tablet 09/20/18 Oseltamivir Phosphate [Tamiflu -] 75 mg PO BID #10 capsule 09/20/18 Review of Systems - Review of Systems Comments:: GENERAL/CONSTITUTIONAL: No fever or chills. No weakness. HEAD, EYES, EARS, NOSE AND THROAT: No change in vision. No ear pain or discharge. No sore throat. CARDIOVASCULAR: No chest pain or shortness of breath. RESPIRATORY: No cough, wheezing, or hemoptysis. GASTROINTESTINAL: +epigastric pain. No nausea, vomiting, diarrhea or constipation. GENITOURINARY: No dysuria, frequency, or change in urination. MUSCULOSKELETAL: No joint or muscle swelling or pain. No neck pain. +back pain. SKIN: No rash NEUROLOGIC: No headache, vertigo, loss of consciousness, or change in strength/ sensation. ENDOCRINE: No increased thirst. No abnormal weight change. HEMATOLOGIC/LYMPHATIC: No anemia, easy bleeding, or history of blood clots. ALLERGIC/IMMUNOLOGIC: No hives or skin allergy. <Alyse Ceballos - Last Filed: 10/10/18 01:20> *Physical Exam - Vital Signs Last Vital Signs Temp Pulse Resp BP Pulse Ox 98.4 F 79 20 134/81 100 10/10/18 01:02 10/10/18 01:02 10/10/18 01:02 10/10/18 01:02 10/10/18 01:02 - Physical Exam Comments: GENERAL: Awake, alert, and fully oriented, in no acute distress HEAD: No signs of trauma EYES: PERRLA, EOMI, sclera anicteric, conjunctiva clear ENT: Auricles normal inspection, hearing grossly normal, nares patent, oropharynx clear without exudates. Moist mucosa NECK: Normal ROM, supple, no lymphadenopathy, JVD, or masses LUNGS: Breath sounds equal, clear to auscultation bilaterally. No wheezes, and no crackles HEART: Regular rate and rhythm, normal S1 and S2, no murmurs, rubs or gallops ABDOMEN: Soft, nontender, normoactive bowel sounds. No guarding, no rebound. No masses EXTREMITIES: Normal range of motion, no edema. No clubbing or cyanosis. No cords, erythema, or tenderness NEUROLOGICAL: Cranial nerves II through XII grossly intact. Normal speech, normal gait SKIN: Warm, Dry, normal turgor, no rashes or lesions noted. 10/10/18 01:24 <Alyse Ceballos - Last Filed: 10/10/18 01:20> Moderate Sedation - Procedure Monitoring Vital Signs: Procedure Monitoring Vital Signs Temperature 98.4 F 10/10/18 01:02 Pulse Rate 79 10/10/18 01:02 Respiratory Rate 20 10/10/18 01:02 Blood Pressure 134/81 10/10/18 01:02 O2 Sat by Pulse Oximetry (%) 100 10/10/18 01:02 <Alyse Ceballos - Last Filed: 10/10/18 01:20> ED Treatment Course - ADDITIONAL ORDERS Additional order review: Laboratory Results 10/10/18 00:49 Urine HCG, Qual Negative <Alyse Ceballos - Last Filed: 10/10/18 01:20> *DC/Admit/Observation/Transfer - Attestations Scribe Attestion: 10/10/18 01:24 Documentation prepared by Alyse Ceballos, acting as medical officer psychiatry for Angy Sawyer MD. <Alyse Ceballos - Last Filed: 10/10/18 01:20> - Discharge Dispostion Decision to Admit order: No <Angy Sawyer - Last Filed: 10/10/18 02:34> Diagnosis at time of Disposition: Muscle pain - Discharge Dispostion Disposition: HOME Condition at time of disposition: Stable - Referrals Referrals: Maya Ulloa MD [Primary Care Provider] - - Patient Instructions Printed Discharge Instructions: Back Pain (Alternative Therapy), DI for Dyspepsia
[2018-10-10 01:03] VITALS: BP 134/81; PULSE 79; TEMP 98.4; BMI 30.5
[2018-10-10 01:56] LABS: URINE APPEARANCE CLEAR; URINE BILIRUBIN NEGATIVE (<2.0 mg/dL); URINE COLOR LTYELLOW; URINE GLUCOSE (UA) NEGATIVE (NEGATIVE); URINE KETONE NEGATIVE (NEGATIVE); URINE LEUK ESTERASE NEGATIVE (NEGATIVE); URINE NITRITE NEGATIVE (NEGATIVE); URINE PROTEIN NEGATIVE (NEGATIVE); URINE UROBILINOGEN NEGATIVE mg/dL (0.2-1.0)
== END 2018-10-10 02:43 | disposition home or self-care (01) ==
LOC: JER 23:20
DX: M79.18 Myalgia, other site (principal)
CPT/HCPCS: 81003; 84703; 99281-25

== ENCOUNTER 2019-01-03 21:26 | Emergency (ER) | payer OTHER ==
[2019-01-03 21:41] VITALS: BP 137/72; PULSE 85; TEMP 97.9; BMI 29.7
--- NOTE | 2019-01-03 21:44 | PDOC ---
Rapid Medical Evaluation Chief Complaint: Nausea Time Seen by Provider: 01/03/19 21:42 Medical Evaluation: Allergies Allergy/AdvReac Type Severity Reaction Status Date / Time No Known Allergies Allergy Verified 01/03/19 21:39 Vital Signs Temp Pulse Resp BP Pulse Ox 97.9 F 85 18 137/72 99 01/03/19 21:40 01/03/19 21:40 01/03/19 21:40 01/03/19 21:40 01/03/19 21:40 01/03/19 21:43 I have performed a brief in-person evaluation of this patient. The patient presents with a chief complaint of: no PMhx present with complains of morning sickness for 4 days. LMP 12/02 Pertinent physical exam findings: A&O x 3 I have ordered the following: Uhcg The patient will proceed to the ED for further evaluation. Discharge Disposition - Diagnosis Nausea - Discharge Dispostion Condition at time of disposition: Stable - Referrals - Patient Instructions - Post Discharge Activity
--- NOTE | 2019-01-03 23:37 | PDOC ---
History of Present Illness - General Chief Complaint: Nausea Stated Complaint: nausea Time Seen by Provider: 01/03/19 21:42 - History of Present Illness Initial Comments: 01/03/19 23:34 The patient is a 23 year old female with no reported significant PMH who presents to the ED c/o 3 day h/o nausea in the morning. No associated vomiting , abdominal cramping, fevers/chills. LMP was December 02 and states she is regular. Reports to nursing @ triage that she is here for a test. States she is waiting for her insurance card to be mailed to her to establish primary care. NKDA Past History - Past Medical History Allergies/Adverse Reactions: Allergies Allergy/AdvReac Type Severity Reaction Status Date / Time No Known Allergies Allergy Verified 01/03/19 21:39 Home Medications: Ambulatory Orders Ondansetron [Zofran -] 4 mg PO BID PRN 7 Days #14 tablet 01/03/19 Asthma: No Cancer: No Cardiac Disorders: No COPD: No Diabetes: No GI Disorders: Yes (Gallstones) Disorders: No HTN: Yes (2011- during ) Seizures: No Thyroid Disease: No - Surgical History Abdominal Surgery: Yes Cholecystectomy: Yes - Family Disease History Family Disease History: Diabetes: Mother - Immunization History Immunization Up to Date: Yes - Suicide/Smoking/Psychosocial Hx Smoking Status: No Smoking History: Never smoked Have you smoked in the past 12 months: No Number of Cigarettes Smoked Daily: 0 Hx Alcohol Use: No Drug/Substance Use Hx: No Substance Use Type: None Hx Substance Use Treatment: No Review of Systems - Review of Systems Constitutional: No: Chills, Fever HEENTM: No: Recent change in vision Respiratory: No: Cough, Shortness of Breath Cardiac (ROS): No: Chest Pain, Lightheadedness, Palpitations, Syncope ABD/GI: Yes: Nausea. No: Constipated, Diarrhea, Vomiting, Abdominal cramping *Physical Exam - Vital Signs Last Vital Signs Temp Pulse Resp BP Pulse Ox 97.9 F 85 18 137/72 99 01/03/19 21:40 01/03/19 21:40 01/03/19 21:40 01/03/19 21:40 01/03/19 21:40 - Physical Exam General Appearance: Yes: Nourished, Appropriately Dressed HEENT: positive: Normal Voice, Hearing Grossly Normal Neck: positive: Trachea midline, Supple Respiratory/Chest: positive: Lungs Clear, Normal Breath Sounds Cardiovascular: positive: S1, S2. negative: Edema, JVD Gastrointestinal/Abdominal: positive: Normal Bowel Sounds, Soft. negative: Distended, Guarding, Rebound, Tenderness Musculoskeletal: negative: CVA Tenderness (R), CVA Tenderness (L) Extremity: positive: Normal Capillary Refill, Normal Inspection Integumentary: positive: Normal Color, Dry, Warm Neurologic: positive: mold polisher II-XII NML intact, Fully Oriented, Alert ED Treatment Course - ADDITIONAL ORDERS Additional order review: Laboratory Results 01/03/19 21:54 Urine HCG, Qual Negative Medical Decision Making - Medical Decision Making 01/03/19 23:35 23 year old female presents with nausea and stated reason for visit of obtaining a test. VS unremarkable. Abdominal, cardiac and respiratory exam without any concerning clinical findings. 01/03/19 23:47 Urine HCG negative Will give outpatient prescription for Zofran (7 days) and discharge home with instruction to follow-up with primary care once she receives her insurance card. *DC/Admit/Observation/Transfer Diagnosis at time of Disposition: Nausea - Discharge Dispostion Disposition: HOME Condition at time of disposition: Good Decision to Admit order: No - Prescriptions Prescriptions: Ondansetron [Zofran -] 4 mg PO BID PRN 7 Days #14 tablet PRN Reason: Nausea - Referrals - Patient Instructions Printed Discharge Instructions: DI for Nausea -- Adult Additional Instructions: You were evaluated today for your nausea. We have sent a short term prescription of a nausea medication to your pharmacy. Please follow up with your primary care doctor for further refills. Your urine test is negative. Return to the Emergency Department for any new/worsening/concerning symptoms. - Post Discharge Activity
--- NOTE | 2019-01-03 23:59 | PDOC ---
Documentation entered by Sofya Zuniga SCRIBE, acting as scribe for Lavinia Iglesias MD. Lavinia Iglesias MD: This documentation has been prepared by the Efrain zuñiga Daisy, SCRIBE, under my direction and personally reviewed by me in its entirety. I confirm that the documentation accurately reflects all work, treatment, procedures, and medical decision making performed by me. Attending Attestation - Resident Resident Name: Ashley Nguyen - ED Attending Attestation I have performed the following: I have examined & evaluated the patient, The case was reviewed & discussed with the resident, I agree w/resident's findings & plan - HPI HPI: 01/03/19 23:50 This 23 yo female is concerned she maybe and her LMP 12/02/18 - Physicial Exam PE: 01/03/19 23:51 wnwd 23 yo female in no acute distress head ncat neck supple lungs cta b/l cvs [id number] abd no rebound, no guarding extremities normal exam,no tenderness,no rashes,full rage of motion no cva tenderness skin warm and dry neuro axox3,ambulatory - Medical Decision Making 01/03/19 23:59 pt had a negative test and is being discharged
== END 2019-01-04 | disposition home or self-care (01) ==
LOC: JERFT 21:26 → JER 21:26
DX: R11.0 Nausea (principal); Z32.02 Encounter for pregnancy test, result negative
CPT/HCPCS: 84703; 99282-25

== ENCOUNTER 2019-02-23 07:45 | Emergency (ER) | payer OTHER ==
[2019-02-23 07:59] VITALS: BP 93/69; PULSE 78; TEMP 98.5; BMI 27.4
--- NOTE | 2019-02-23 08:38 | PDOC ---
History of Present Illness - General Chief Complaint: Nausea Stated Complaint: NAUSEA Time Seen by Provider: 02/23/19 08:06 History Source: Patient Exam Limitations: No Limitations Past History - Travel Traveled outside of the country in the last 30 days: No Close contact w/someone who was outside of country & ill: No - Past Medical History Allergies/Adverse Reactions: Allergies Allergy/AdvReac Type Severity Reaction Status Date / Time No Known Allergies Allergy Verified 02/23/19 07:54 Home Medications: Ambulatory Orders Loratadine [Claritin -] 10 mg PO DAILY 02/23/19 Ondansetron [Zofran Odt -] 4 mg SL TID #10 od.tablet 02/23/19 Asthma: No Cancer: No Cardiac Disorders: No COPD: No Diabetes: No GI Disorders: Yes (Gallstones) Disorders: No HTN: Yes (2012- during ) Seizures: No Thyroid Disease: No - Surgical History Abdominal Surgery: Yes Cholecystectomy: Yes - Family Disease History Family Disease History: Diabetes: Mother - Reproductive History Is Patient Now?: No - Immunization History Immunization Up to Date: Yes - Suicide/Smoking/Psychosocial Hx Smoking Status: No Smoking History: Unknown if ever smoked Have you smoked in the past 12 months: No Number of Cigarettes Smoked Daily: 0 Hx Alcohol Use: No Drug/Substance Use Hx: No Substance Use Type: None Hx Substance Use Treatment: No Review of Systems - Review of Systems Able to Perform ROS?: Yes Comments:: 02/23/19 10:30 CONSTITUTIONAL: Absent: fever, chills, diaphoresis, generalized weakness, malaise, loss of appetite HEENT: Absent: rhinorrhea, nasal congestion, throat pain, throat swelling, difficulty swallowing, mouth swelling, ear pain, eye pain, visual Changes CARDIOVASCULAR: Absent: chest pain, loss of consciousness, palpitations, irregular heart rate, peripheral edema RESPIRATORY: Absent: cough, shortness of breath, dyspnea with exertion, orthopnea, wheezing, stridor, hemoptysis GASTROINTESTINAL: Present: nausea Absent: abdominal pain, abdominal distension, vomiting, diarrhea , constipation, melena, hematochezia GENITOURINARY: Absent: dysuria, frequency, urgency, hesitancy, hematuria, flank pain, genital pain MUSCULOSKELETAL: Absent: myalgia, arthralgia, joint swelling SKIN: Absent: rash, itching, pallor HEMATOLOGIC/IMMUNOLOGIC: Absent: easy bleeding, easy bruising, lymphadenopathy, frequent infections ENDOCRINE: Absent: unexplained weight gain, unexplained weight loss, heat intolerance, cold intolerance NEUROLOGIC: Absent: headache, focal weakness or paresthesias, dizziness, unsteady gait, seizure, mental status changes, bladder or bowel incontinence PSYCHIATRIC: Absent: anxiety, depression, suicidal or homicidal ideation, hallucinations. Is the patient limited Czech proficient: No *Physical Exam - Vital Signs Last Vital Signs Temp Pulse Resp BP Pulse Ox 98.5 F 78 16 93/69 100 02/23/19 07:57 02/23/19 07:57 02/23/19 07:57 02/23/19 07:57 02/23/19 07:57 - Physical Exam Comments: 02/23/19 10:30 GENERAL: Well developed, well nourished. Awake and alert. No acute distress. HEENT: Normocephalic, atraumatic. PERRLA, EOMI. No conjunctival pallor. Sclera are non- icteric. Moist mucous membranes. Oropharynx is clear. NECK: Supple. Full ROM. No JVD. Carotid pulses 2+ and symmetric, without bruits. No thyromegaly. No lymphadenopathy. ABDOMINAL: Soft. Non-tender. Non-distended. No rebound or guarding. No organomegaly. Normoactive bowel sounds. SKIN: Warm and dry. Normal capillary refill. No rashes. No jaundice. NEUROLOGICAL: Alert, awake, appropriate. Cranial nerves 2-12 intact. No deficits to light touch and temperature in face, upper extremities and lower extremities. No motor deficits in the in face, upper extremities and lower extremities. Normoreflexic in the upper and lower extremities. Normal speech. Toes are down- going bilaterally. Gait is normal without ataxia. PSYCHIATRIC: Cooperative. Good eye contact. Appropriate mood and affect. Medical Decision Making - Medical Decision Making 02/23/19 10:31 the patient is a 23-year-old female no past medical history who presents to the ER today with 1 day of nausea. She states that when she woke up this morning she had a wave of nausea but that feeling soon past. She denies abdominal pain , urinary symptoms at this time. She states that her nausea has gone away as well. A/P: Nausea On exam abdomen soft nontender with no rebound guarding or tennis. Patient is currently symptomatically. Urine obtained as patient is unsure if she is test is negative Discharge home with Zofran as needed for nausea I discussed the physical exam findings, ancillary test results and final diagnoses with the patient. I answered all of the patient's questions. The patient was satisfied with the care received and felt comfortable with the discharge plan and treatment plan. The Patient agrees to follow up with the primary care physician/specialist within 24-72 hours. Return precautions were given. *DC/Admit/Observation/Transfer Diagnosis at time of Disposition: Nausea - Discharge Dispostion Disposition: HOME Condition at time of disposition: Stable Decision to Admit order: No - Prescriptions Prescriptions: Ondansetron [Zofran Odt -] 4 mg SL TID #10 od.tablet - Referrals Referrals: Grant Flores [Primary Care Provider] - - Patient Instructions Printed Discharge Instructions: DI for Nausea -- Adult Additional Instructions: You were evaluated for your nausea today your test was negative you may take the zofran, 1 tab every 8 hours as needed for nausea Eat a bland diet Follow up with your primary care doctor this week Return to the ER for vomiting, fever, abdominal pain, or if you have any changes in your symptoms - Post Discharge Activity Forms/Work/School Notes: Back to Work
== END 2019-02-23 09:37 | disposition home or self-care (01) ==
LOC: JERFT 07:45
DX: R11.0 Nausea (principal); I10 Essential (primary) hypertension
CPT/HCPCS: 84703; 99282-25

== ENCOUNTER 2019-02-24 18:45 | Emergency (ER) | payer OTHER ==
[2019-02-24 18:51] VITALS: BP 147/87; PULSE 84; TEMP 98.5; BMI 30.7
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
== END 2019-02-24 19:27 | disposition home or self-care (01) ==
LOC: JERFT 18:45
DX: S49.81XA Other specified injuries of right shoulder and upper arm, initial encounter (principal); X50.9XXA Other and unspecified overexertion or strenuous movements or postures, initial encounter; Y93.89 Activity, other specified; Y92.198 Other place in other specified residential institution as the place of occurrence of the external cause; Y99.0 Civilian activity done for income or pay
CPT/HCPCS: 73030-TC-RT-FY; 99281-25

== ENCOUNTER 2019-04-17 19:24 | Emergency (ER) | payer OTHER ==
[2019-04-17 19:33] VITALS: BP 117/81; PULSE 82; TEMP 98.3; BMI 30.4
--- NOTE | 2019-04-17 20:57 | PDOC ---
History of Present Illness - General Chief Complaint: Diarrhea Stated Complaint: L LEG BOIL Time Seen by Provider: 04/17/19 19:37 History Source: Patient - History of Present Illness Timing/Duration: reports: changing over time Quality: reports: mild Past History - Past Medical History Allergies/Adverse Reactions: Allergies Allergy/AdvReac Type Severity Reaction Status Date / Time No Known Allergies Allergy Verified 04/17/19 19:26 Home Medications: Ambulatory Orders Nitrofurantoin Monohyd/M-Cryst [Macrobid -] 100 mg PO BID #14 capsule 04/17/19 Asthma: No Cancer: No Cardiac Disorders: No COPD: No Diabetes: No GI Disorders: Yes (Gallstones) Disorders: No HTN: Yes (2012- during ) Seizures: No Thyroid Disease: No - Surgical History Abdominal Surgery: Yes Cholecystectomy: Yes - Family Disease History Family Disease History: Diabetes: Mother - Immunization History Immunization Up to Date: Yes - Suicide/Smoking/Psychosocial Hx Smoking Status: No Smoking History: Never smoked Have you smoked in the past 12 months: No Number of Cigarettes Smoked Daily: 0 Hx Alcohol Use: Yes (socially) Drug/Substance Use Hx: No Substance Use Type: None Hx Substance Use Treatment: No Abd/GI Specific PMHX - Complaint Specific PMHX Gall Bladder Disease: Yes Review of Systems - Review of Systems Constitutional: No: Chills, Fever, Malaise, Weakness ABD/GI: Yes: Diarrhea. No: Blood Streaked Bowels, Nausea, Rectal Bleeding, Vomiting, Abdominal cramping, Tarry Stools : Yes: Dysuria. No: Discharge, Flank Pain, Hematuria *Physical Exam - Vital Signs Last Vital Signs Temp Pulse Resp BP Pulse Ox 98.3 F 82 18 117/81 100 04/17/19 19:27 04/17/19 19:27 04/17/19 19:27 04/17/19 19:27 04/17/19 19:27 - Physical Exam General Appearance: Yes: Appropriately Dressed. No: Apparent Distress HEENT: positive: Normal Voice Neck: positive: Supple Respiratory/Chest: negative: Respiratory Distress Gastrointestinal/Abdominal: positive: Soft. negative: Tender Musculoskeletal: negative: CVA Tenderness Integumentary: positive: Dry, Warm Neurologic: positive: Fully Oriented, Alert, Normal Mood/Affect Medical Decision Making - Medical Decision Making 04/17/19 20:54 23 yo F, no sig hx, here w/ multiple complaints. C/o 3-4 e/o NB, watery, diarrhea today. No abd pain, n/v/f/c. No recent travel, sick contacts, unusual food or abx use. Also c/o dysuria today. No flank pain or hematuria. see exam Diarrhea No RF for serious dysentery Stale and well riri w/ benign abd -dc w/ supportive tx Dysuria R/o UTI No e//o pyelo -ua/cx pending 04/17/19 21:27 UA w/ 2+ LE and > 300 nadine. Dc w/ macrobid. To f/u on ucx *DC/Admit/Observation/Transfer Diagnosis at time of Disposition: Dysuria Diarrhea Qualifiers: Diarrhea type: unspecified type Qualified Code(s): R19.7 - Diarrhea, unspecified - Discharge Dispostion Disposition: HOME Condition at time of disposition: Good - Prescriptions Prescriptions: Nitrofurantoin Monohyd/M-Cryst [Macrobid -] 100 mg PO BID #14 capsule - Referrals - Patient Instructions Printed Discharge Instructions: Urinary Tract Infection, Diarrhea Additional Instructions: Take medication as directed - Post Discharge Activity
[2019-04-17 21:22] LABS: EPI CELLS 9.7 /HPF (0-5/HPF); HYALINE CASTS 3 /lpf (0-8); PH,URINE 5.5 (5.0-8.0); URINE APPEARANCE CLOUDY; URINE BACTERIA 384.6 /hpf (NEGATIVE); URINE BILIRUBIN NEGATIVE (NEGATIVE); URINE COLOR YELLOW; URINE GLUCOSE (UA) NEGATIVE (NEGATIVE); URINE KETONE NEGATIVE (NEGATIVE); URINE LEUK ESTERASE 2+ (NEGATIVE); URINE NITRITE NEGATIVE (NEGATIVE); URINE PROTEIN NEGATIVE (NEGATIVE); URINE RBC 1 /hpf (0-4); URINE UROBILINOGEN 0.2 mg/dL (0.2-1.0); URINE WBC 16 /hpf (0-5)
== END 2019-04-17 21:31 | disposition home or self-care (01) ==
LOC: JER 19:24
DX: N39.0 Urinary tract infection, site not specified (principal); R19.7 Diarrhea, unspecified
CPT/HCPCS: 81003; 84703; 87086; 99283-25

== ENCOUNTER 2019-06-13 17:51 | Emergency (ER) | payer OTHER ==
--- NOTE | 2019-06-13 18:19 | PDOC ---
Rapid Medical Evaluation Time Seen by Provider: 06/13/19 18:17 Medical Evaluation: Allergies Allergy/AdvReac Type Severity Reaction Status Date / Time No Known Allergies Allergy Verified 04/17/19 19:26 06/13/19 18:17 HPI: L ear pain x 2 days with periauricular swelling no fevers PE: No gross deficits ORDERS: Nothing Discharge Disposition - Diagnosis Left ear pain - Referrals - Patient Instructions - Post Discharge Activity
[2019-06-13 18:23] VITALS: BP 123/74; PULSE 88; TEMP 98.6; BMI 31.6
--- NOTE | 2019-06-13 20:27 | PDOC ---
History of Present Illness - General Chief Complaint: Ear Problem Stated Complaint: EAR PAIN Time Seen by Provider: 06/13/19 18:17 History Source: Patient Exam Limitations: No Limitations - History of Present Illness Initial Comments: 06/13/19 20:22 Chief complaint: Left ear pain Patient is a healthy 24-year-old female who scratched the left tragus, and now has pain swelling and discharge. She has pain going down into the neck but no swelling in the neck. No fever. GENERAL/CONSTITUTIONAL: No fever, weakness. dizziness HEAD, EYES, EARS, NOSE AND THROAT: no change in vision. + Left ear pain. No sore throat. CARDIOVASCULAR: No chest pain RESPIRATORY: No shortness of breath or cough GASTROINTESTINAL: No pain, nausea, vomiting, diarrhea or constipation GENITOURINARY: No dysuria MUSCULOSKELETAL: No neck or back pain SKIN: No rash NEUROLOGIC: No headache, vertigo, loss of consciousness, or loss of sensation. GENERAL: The patient is awake, alert, and fully oriented, in no acute distress. HEAD: Normal with no signs of trauma. EYES: Pupils equal, round and reactive to light, sclera anicteric, conjunctiva clear. ENT: Right ear clear, TM normal, left ear with small bleeding area on tragus, pinpoint, minimal erythema, tenderness, no lymphadenopathy, pharynx: no erythema , no exudate, uvula midline, no sub-lingular swelling NECK: supple, no tenderness or swelling CHEST: clear, nontender, rr ABD: soft, nontender BACK: no tenderness or signs of injury EXTREMITIES: Normal range of motion, no edema. NEUROLOGICAL: Normal speech, normal gait. SKIN: Warm, Dry Past History - Past Medical History Allergies/Adverse Reactions: Allergies Allergy/AdvReac Type Severity Reaction Status Date / Time No Known Allergies Allergy Verified 06/13/19 18:19 Home Medications: Ambulatory Orders Nitrofurantoin Monohyd/M-Cryst [Nitrofurantoin [place]-Mcr 100 mg] 100 mg PO BID # 14 capsule 04/18/19 Amoxicillin/Potassium Clav [Augmentin 875-125 Tablet] 1 each PO BID #14 tablet 06/13/19 Mometasone Furoate 45 gm TP BID #1 oint...g. 06/13/19 Asthma: No Cancer: No Cardiac Disorders: No COPD: No Diabetes: No GI Disorders: Yes (Gallstones) Disorders: No HTN: Yes (2012- during ) Seizures: No Thyroid Disease: No - Surgical History Abdominal Surgery: Yes Cholecystectomy: Yes - Immunization History Immunization Up to Date: Yes - Psycho Social/Smoking Cessation Hx Smoking Status: No Smoking History: Never smoked Have you smoked in the past 12 months: No Number of Cigarettes Smoked Daily: 0 Hx Alcohol Use: No Drug/Substance Use Hx: No Substance Use Type: None Hx Substance Use Treatment: No *Physical Exam - Vital Signs Last Vital Signs Temp Pulse Resp BP Pulse Ox 98.6 F 88 18 123/74 99 06/13/19 18:19 06/13/19 18:19 06/13/19 18:19 06/13/19 18:19 06/13/19 18:19 Medical Decision Making - Medical Decision Making 06/13/19 20:24 Healthy 24-year-old female who scratched her ear, left tragus, now it is mildly swollen and erythematous, able to see in the ear canal, does not appear ill, there is no neck swelling. Patient will be started on Augmentin for localized infection to the skin. Discussed issues, findings, results, applicable medications and treatments and follow-up. All these were understood and all questions were answered 06/13/19 20:25 Patient also asking for cream for eczema, has a picture of it, states that her eczema gets irritated on her inner arms, no acute issue, no signs of infection Discharge - Discharge Information Problems reviewed: Yes Clinical Impression/Diagnosis: Skin infection Condition: Stable Disposition: HOME - Admission No - Additional Discharge Information Prescriptions: Amoxicillin/Potassium Clav [Augmentin 875-125 Tablet] 1 each PO BID #14 tablet Mometasone Furoate 45 gm TP BID #1 oint...g. - Follow up/Referral - Patient Discharge Instructions Additional Instructions: Take the Augmentin every 12 hours for 7 days Return to the ER if fever, swelling gets worse or you feel sicker. Use the cream for your eczema every 12 hours for a maximum of 2 weeks Follow-up with your doctor or auto polisher for your eczema Follow-up with the ENT doctor, you can call [facility] anywhere in [place] for an appointment or you can go on their website and pick at a location and a doctor that takes your insurance and pick at appointment time for this week. If he gets better in the next 2 days, you do not need to see the ENT doctor - Post Discharge Activity
[2019-06-13] MEDS ORDERED: AMOX TR/POT CLAV 875MG/125MG TABLETS (FP) PO ONE (21:23)
[2019-06-13] MEDS ORDERED: AMOX TR/POT CLAV 875MG/125MG TABLETS (FP) ONE (21:25)
== END 2019-06-13 20:36 | disposition home or self-care (01) ==
LOC: JERFT 17:51
DX: L98.8 Other specified disorders of the skin and subcutaneous tissue (principal); L30.9 Dermatitis, unspecified
CPT/HCPCS: 99281-25

== ENCOUNTER 2020-08-18 10:32 | Emergency (ER) | payer OTHER ==
[2020-08-18 11:01] VITALS: BP 117/62; PULSE 82; BMI 30.7
[2020-08-18 11:14] VITALS: TEMP 97.9
[2020-08-18 12:58] LABS: HCG,QUALITATIVE URINE Positive
[2020-08-18 13:01] LABS: EPI CELLS 11 /uL (0-25.1); HYALINE CASTS 1 /uL (0-3.1); PH,URINE 6.5 (5.0-8.0); URINE APPEARANCE CLEAR; URINE BACTERIA 229 /uL (0-1359); URINE BILIRUBIN NEGATIVE (NEGATIVE); URINE COLOR YELLOW; URINE GLUCOSE (UA) NEGATIVE (NEGATIVE); URINE KETONE NEGATIVE (NEGATIVE); URINE LEUK ESTERASE TRACE (NEGATIVE); URINE NITRITE NEGATIVE (NEGATIVE); URINE PROTEIN NEGATIVE (NEGATIVE); URINE RBC 2 /uL (0-23.9); URINE WBC 14 /uL (0-25.8)
== END 2020-08-18 13:12 | disposition home or self-care (01) ==
LOC: JERFT 10:32
DX: Z34.90 Encounter for supervision of normal pregnancy, unspecified, unspecified trimester (principal)
CPT/HCPCS: 81003; 84703; 87086; 99284-25

== ENCOUNTER 2021-06-28 08:52 | Emergency (ER) | payer OTHER ==
[2021-06-28 09:09] VITALS: BP 123/75; PULSE 75; TEMP 97.7; BMI 27.3
[2021-06-28 12:20] LABS: THROAT:GRP A STREP NOT DETECTED (NOTDETECTED)
[2021-06-28 14:07] LABS: SARS COV-2 MOLECULAR Negative (Negative)
== END 2021-06-28 12:03 | disposition home or self-care (01) ==
LOC: JER 08:52
DX: H66.92 Otitis media, unspecified, left ear (principal)
CPT/HCPCS: 87651; 99283-25; C9803; U0003; U0005

== ENCOUNTER 2022-11-02 16:37 | Emergency (ER) | payer OTHER ==
[2022-11-02 16:44] VITALS: BP 124/77; PULSE 77; RESP 18; TEMP 99.1; BMI 34.9
== END 2022-11-02 18:59 | disposition home or self-care (01) ==
LOC: JER 16:37 → JERFT 16:37
DX: H92.01 Otalgia, right ear (principal); Z20.822 Contact with and (suspected) exposure to COVID-19
CPT/HCPCS: 0241U-QW; 99283-25

== ENCOUNTER 2023-11-16 22:39 | Emergency (ER) | payer OTHER ==
[2023-11-16 22:50] VITALS: BP 136/88; PULSE 68; RESP 18; TEMP 98.3; BMI 36.6
[2023-11-16] MEDS ORDERED: IBUPROFEN 600 MG TABLET (FP) PO ONE (23:39)
[2023-11-16] MEDS: IBUPROFEN 600 MG TABLET (FP) PO ONE (23:42)
== END 2023-11-17 01:16 | disposition home or self-care (01) ==
LOC: JER 22:39
DX: M25.571 Pain in right ankle and joints of right foot (principal); M79.661 Pain in right lower leg; M79.89 Other specified soft tissue disorders
CPT/HCPCS: 73610-TC-RT-FY; 73630-TC-RT-FY; 93971-TC; 99284-25

== ENCOUNTER 2023-12-02 13:24 | Emergency (ER) | payer OTHER ==
[2023-12-02 13:37] VITALS: BP 127/84; PULSE 82; RESP 18; TEMP 98; BMI 39.9
[2023-12-02] MEDS ORDERED: FAMOTIDINE 20 MG/50 ML IVPB 20 MG/50 ML MG IVPB ONE (14:42)
[2023-12-02 14:48] LABS: BASO % 0.4 % (0-2.0); EOS % 1.4 % (0-4.5); HEMATOCRIT 37.5 % (32.4-45.2); HEMOGLOBIN 12.6 GM/dL (10.7-15.3); LYMPH % 26.4 % (8-40); MCH 30.2 pg (25.7-33.7); MCHC 33.6 g/dl (32.0-36.0); MEAN CELL VOLUME 89.9 fl (80-96); MEAN PLT VOLUME 7.7 fl (7.5-11.1); MONO % 8.3 % (3.8-10.2); NEUT % 63.5 % (42.8-82.8); PLATELET COUNT 345 10^3/uL (134-434); RBC 4.17 M/mm3 (3.60-5.2); RDW 13.9 % (11.6-15.6); WHITE BLOOD COUNT 5.2 K/mm3 (4.0-10.0)
[2023-12-02] MEDS: FAMOTIDINE 20 MG/50 ML IVPB 20 MG/50 ML MG IVPB ONE (14:49)
[2023-12-02 14:51] LABS: EPI CELLS >36 /uL (0-25.1); HYALINE CASTS 1 /uL (0-3.1); PH,URINE 5.5 (5.0-8.0); URINE APPEARANCE CLOUDY; URINE BACTERIA 1384 /uL (0-1359); URINE BILIRUBIN NEGATIVE (NEGATIVE); URINE COLOR YELLOW; URINE GLUCOSE (UA) NEGATIVE (NEGATIVE); URINE KETONE TRACE (NEGATIVE); URINE LEUK ESTERASE 1+ (NEGATIVE); URINE NITRITE NEGATIVE (NEGATIVE); URINE PROTEIN TRACE (NEGATIVE); URINE RBC 12 /uL (0-23.9); URINE WBC 39 /uL (0-25.8)
[2023-12-02 14:52] LABS: HCG,QUALITATIVE URINE Negative
[2023-12-02 15:07] LABS: POTASSIUM 3.7 mmol/L (3.5-5.1)
[2023-12-02 15:09] LABS: CALCIUM 8.4 mg/dL (8.5-10.1)
[2023-12-02 15:10] LABS: ALBUMIN 3.7 g/dl (3.4-5.0); BLOOD UREA NITROGEN 9.6 mg/dL (7-18)
[2023-12-02 15:13] LABS: CREATININE 0.7 mg/dL (0.55-1.3)
[2023-12-02 15:14] LABS: BILIRUBIN,TOTAL 0.4 mg/dL (0.2-1); TOT PROT 7.6 g/dl (6.4-8.2)
== END 2023-12-02 17:01 | disposition home or self-care (01) ==
LOC: JERFT 13:24
PROC: 3E033GC Introduction of Other Therapeutic Substance into Peripheral Vein, Percutaneous Approach (ICD-10-PCS; principal; 2023-12-02)
DX: H92.01 Otalgia, right ear (principal); R74.01 Elevation of levels of liver transaminase levels
CPT/HCPCS: 36415; 74177-TC; 80053; 81003; 83690; 84703; 85025; 99285-25; Q9967

== ENCOUNTER 2025-02-20 12:29 | Emergency (ER) | payer BC, OTHER ==
[2025-02-20 12:47] VITALS: BP 124/80; PULSE 72; RESP 18; TEMP 98.1; BMI 37.1
[2025-02-20] MEDS ORDERED: ALBUTEROL SO4 2.5/IPRATROPIUM 0.5 INH SOL 3 ML VIAL.NEB. NEB ONE (14:28)
[2025-02-20] MEDS: ALBUTEROL SO4 2.5/IPRATROPIUM 0.5 INH SOL 3 ML VIAL.NEB. NEB ONE (14:38)
== END 2025-02-20 15:45 | disposition home or self-care (01) ==
LOC: JER 12:29
PROC: 3E0F7GC Introduction of Other Therapeutic Substance into Respiratory Tract, Via Natural or Artificial Opening (ICD-10-PCS; principal; 2025-02-20)
DX: L02.411 Cutaneous abscess of right axilla (principal); R06.2 Wheezing
CPT/HCPCS: 93005; 93010; 99283-25